=== PATIENT | female | born 1930 | race Caucasian/White ===

== ENCOUNTER 2018-10-18 09:42 | Emergency (ER) | payer MEDICARE, BC ==
[~2018-10-18] VITALS: Ht 177.8 cm; Wt 129.6 kg
[~2018-10-18 09:42] MED LIST: COU1T PO; COU3T PO; DIPH-186 PO; LISI40TA4 PO; MECL12.584 PO; METO25TA6 PO; OMEG1CAP2 PO; ONDA4TAB12 PO; PANT-47 PO
--- NOTE | 2018-10-18 10:01 | NUR ---
PT TOOK LISINOPRIL 40MG AND METOPROLOL 25MG RIGHT BEFORE SHE LEFT THE HOUSE. STATED HER METOPROLOLWAS DECREASED IN HALF LAST AUGUST.
[2018-10-18] MEDS ORDERED: hydrALAZINE 20mg/ml inj. IV ONE (10:35)
[2018-10-18 10:51] VITALS: BP 213/100
[2018-10-18 11:12] LABS: BASOPHILS # (AUTO) 0.1 X10'3 (0-0.2); EOSINOPHILS # (AUTO) 0.1 X10'3 (0-0.9); EOSINOPHILS % (AUTO) 1.8 % (0-6); HEMATOCRIT 44.3 % (35.0-45.0); HEMOGLOBIN 15.1 g/dl (12.0-16.0); LYMPHOCYTES # (AUTO) 1.6 X10'3 (1.1-4.8); LYMPHOCYTES % (AUTO) 24.6 % (21-51); MEAN CORPUSCULAR HEMOGLOBIN 31.4 PG (27.0-31.0); MEAN CORPUSCULAR VOLUME 92.4 FL (78-98); MEAN PLATELET VOLUME 9.2 FL (7.4-10.4); MONOCYTES # (AUTO) 0.6 X10'3 (0-0.9); NEUTROPHILS # (AUTO) 4.1 X10'3 (1.8-7.7); NEUTROPHILS % (AUTO) 63.6 % (42-75); PLATELET COUNT 160 X10'3 (140-440); RED BLOOD COUNT 4.79 X10'6 (4.20-5.60); RED CELL DISTRIBUTION WIDTH 15.4 % (11.5-14.5); WHITE BLOOD COUNT 6.4 X10'3 (4.5-11.0)
[2018-10-18 11:29] LABS: ALANINE AMINOTRANSFERASE 35 U/L (12-78); ALBUMIN 3.2 G/DL (3.4-5.0); ALBUMIN/GLOBULIN RATIO 0.9 (1.1-1.5); ALKALINE PHOSPHATASE 73 IU/L (46-116); ANION GAP 8 (8-16); ASPARTATE AMINO TRANSFERASE 28 U/L (10-37); BILIRUBIN,TOTAL 1.5 MG/DL (0.1-1.0); BLOOD UREA NITROGEN 24 MG/DL (7-18); BUN/CREATININE RATIO 23.3 (6.6-38.0); CALCIUM 8.4 MG/DL (8.5-10.1); CHLORIDE 109 MMOL/L (99-107); CREATININE 1.03 MG/DL (0.40-0.90); GLUCOSE 122 MG/DL (70-104); POTASSIUM 4.2 MMOL/L (3.5-5.1); SODIUM 141 MMOL/L (135-145); TOTAL CARBON DIOXIDE 24.4 MMOL/L (24-32); TOTAL PROTEIN 6.6 G/DL (6.4-8.2); eGFR 51 ML/MIN
[2018-10-18 11:53] LABS: CLARITY,URINE CLOUDY (Clear); COLOR,URINE YELLOW (Yellow); GLUCOSE, URINE NEGATIVE (Neg); KETONES,URINE NEGATIVE (Neg); LEUKOCYTE ESTERASE ,URINE SMALL (Neg); NITRITES, URINE NEGATIVE (Neg); OCCULT BLOOD,URINE TRACE-INTACT (Neg); PROTEIN,URINE NEGATIVE (Neg)
[2018-10-18 11:56] LABS: UA COLLECTION TYPE CLN CATCH MIDSTREAM
[2018-10-18 11:58] LABS: MUCUS STRANDS MANY /LPF (Neg); SQUAMOUS EPITHELIAL CELL,UR MANY /LPF (FEW)
[2018-10-18 12:00] LABS: BACTERIA,URINE 2+ /HPF (Neg); RBC,URINE 0-2 /HPF (0-2); TRANSITIONAL EPI CELLS,URINE FEW /HPF; WBC,URINE 20-30 /HPF (0-4)
[2018-10-18] MEDS ORDERED: amLODIPine 5mg tablet PO ONE (12:30)
[2018-10-18] MEDS ORDERED: AMLO2.5T2 PO (12:40)
[2018-10-18] MEDS ORDERED: NITR100C6 PO (12:40)
--- NOTE | 2018-10-18 13:40 | NUR ---
Pt refused norvasc tablet. Pt refuses to have bp taken again. Dr. Landis notified. Ordered to have pt f/u with pmd. no distress noted.
== END 2018-10-18 14:39 | disposition home or self-care (01) ==
LOC: ER 09:43
DX: I16.0 Hypertensive urgency (principal); N39.0 Urinary tract infection, site not specified; K21.9 Gastro-esophageal reflux disease without esophagitis; M81.0 Age-related osteoporosis without current pathological fracture; Z86.718 Personal history of other venous thrombosis and embolism; Z79.01 Long term (current) use of anticoagulants; Z79.899 Other long term (current) drug therapy
CPT/HCPCS: 36415; 80053; 81001; 84484; 85025; 93005; 96374; 99284; J0360

== ENCOUNTER 2019-12-22 07:01 | Emergency (ER) | payer MEDICARE, BC ==
[~2019-12-22] VITALS: Ht 177.8 cm; Wt 127.3 kg
[~2019-12-22 07:01] MED LIST changes: +MECL-183 PO; -MECL12.584 PO; +NITR100C6 PO
[2019-12-22] MEDS ORDERED: acetaminophen 325mg tablet PO ONE (07:20)
[2019-12-22] MEDS ORDERED: lisinopril 10 MG tablet PO ONE (07:20)
[2019-12-22 07:53] LABS: BASOPHILS # (AUTO) 0.1 X10'3 (0-0.2); BASOPHILS % (AUTO) 0.9 % (0-1); EOSINOPHILS # (AUTO) 0.2 X10'3 (0-0.9); EOSINOPHILS % (AUTO) 3.5 % (0-6); HEMATOCRIT 41.4 % (35.0-45.0); LYMPHOCYTES # (AUTO) 1.9 X10'3 (1.1-4.8); LYMPHOCYTES % (AUTO) 28.7 % (21-51); MEAN CORPUSCULAR HEMOGLOBIN 31.5 PG (27.0-31.0); MEAN CORPUSCULAR HGB CONC 33.8 g/dL (33.0-36.5); MEAN CORPUSCULAR VOLUME 93.1 FL (78-98); MEAN PLATELET VOLUME 8.7 FL (7.4-10.4); MONOCYTES # (AUTO) 0.6 X10'3 (0-0.9); MONOCYTES % (AUTO) 8.8 % (2-12); NEUTROPHILS # (AUTO) 3.9 X10'3 (1.8-7.7); NEUTROPHILS % (AUTO) 58.1 % (42-75); PLATELET COUNT 157 X10'3 (140-440); RED BLOOD COUNT 4.45 X10'6 (4.20-5.60); RED CELL DISTRIBUTION WIDTH 14.6 % (11.5-14.5); WHITE BLOOD COUNT 6.8 X10'3 (4.5-11.0)
[2019-12-22 08:06] LABS: ALANINE AMINOTRANSFERASE 32 U/L (12-78); ALBUMIN 2.9 G/DL (3.4-5.0); ALBUMIN/GLOBULIN RATIO 0.9 (1.1-1.5); ALKALINE PHOSPHATASE 84 IU/L (46-116); ANION GAP 6 (8-16); ASPARTATE AMINO TRANSFERASE 23 U/L (10-37); BLOOD UREA NITROGEN 18 MG/DL (7-18); BUN/CREATININE RATIO 16.8 (6.6-38.0); CALCIUM 7.9 MG/DL (8.5-10.1); CHLORIDE 110 MMOL/L (99-107); CREATININE 1.07 MG/DL (0.40-0.90); GLUCOSE 119 MG/DL (70-104); PARTIAL THROMBOPLASTIN TIME 48 SECONDS (22-32); POTASSIUM 3.5 MMOL/L (3.5-5.1); SODIUM 143 MMOL/L (135-145); TOTAL CARBON DIOXIDE 27.4 MMOL/L (24-32); TOTAL PROTEIN 6.2 G/DL (6.4-8.2); eGFR 49 ML/MIN
--- NOTE | 2019-12-22 09:18 | NUR ---
ROBERTO MANCIA WORKING ON DC WITH PT'S .
[2019-12-22 11:41] VITALS: BP 187/80
== END 2019-12-22 11:30 | disposition home or self-care (01) ==
LOC: ER 07:01
DX: R51.9 Headache, unspecified (principal); I10 Essential (primary) hypertension; M79.662 Pain in left lower leg; M79.661 Pain in right lower leg; K21.9 Gastro-esophageal reflux disease without esophagitis; M81.0 Age-related osteoporosis without current pathological fracture; Z86.718 Personal history of other venous thrombosis and embolism; Z79.01 Long term (current) use of anticoagulants; Z79.899 Other long term (current) drug therapy
CPT/HCPCS: 36415; 80053; 85025; 85610; 85730; 93005; 99284

== ENCOUNTER 2021-12-11 23:08 | Emergency (ER) | payer MEDICARE, BC ==
[~2021-12-11] VITALS: Ht 177.8 cm; Wt 129.6 kg
[~2021-12-11 23:08] MED LIST changes: +LISI40TA13 PO; -LISI40TA4 PO; +LOP25T PO; -MECL-183 PO; +MECL-226 PO; -METO25TA6 PO
[2021-12-11 23:26] VITALS: BP 191/82
== END 2021-12-12 02:39 | disposition home or self-care (01) ==
LOC: ER 23:08
DX: I10 Essential (primary) hypertension (principal); K21.9 Gastro-esophageal reflux disease without esophagitis; Z79.899 Other long term (current) drug therapy; Z79.1 Long term (current) use of non-steroidal anti-inflammatories (NSAID)
CPT/HCPCS: 93005; 99283